=== PATIENT | female | born 1950 | race Two or more races ===

== ENCOUNTER 2024-08-08 03:43 | Emergency (ER) | payer OTHER ==
[~2024-08-08] VITALS: Ht 167.6 cm; Wt 63.5 kg
[2024-08-08] MEDS ORDERED: PANTOPRAZOLE SO20 MG PO (04:00)
[2024-08-08] MEDS ORDERED: COZAAR25 MG PO (04:00)
[2024-08-08] MEDS ORDERED: SYNTHROID100 MCG PO (04:00)
[2024-08-08] MEDS ORDERED: ALBUTEROL SULFATE 3 ML/2.5 MG AMPUL.NEB IH SCH (05:00)
[2024-08-08] MEDS ORDERED: METHYLPREDNISOLONE SOD SUCC 125 MG VIAL IM STA (05:01)
[2024-08-08] MEDS ORDERED: GUAIFENESIN 200 MG/10 ML BLIST.PACK PO STA (05:02)
[2024-08-08] MEDS ORDERED: METHYLPREDNISOLONE SOD SUCC 125 MG VIAL ONE (05:08)
[2024-08-08] MEDS ORDERED: GUAIFENESIN 200 MG/10 ML BLIST.PACK PO ONE (05:09)
[2024-08-08] MEDS ORDERED: ALBUTEROL SULFATE 3 ML/2.5 MG AMPUL.NEB IH ONE (05:37)
[2024-08-08 05:56] LABS: ABG PH 7.437 (7.35-7.45); ABG pCO2 39.9 mmHg (35-45); BICARBONATE 26.3 mmol/l (23-25); SaO2 97.6 %; Tco2 27.5 mmol/l
[2024-08-08 06:18] LABS: allen test SATISFACTORY; mode ROOM AIR; o2 21 %; puncture site RADIAL RIGHT
[2024-08-08 06:19] LABS: HEMATOCRIT 35.2 % (36.0-45.00); HEMOGLOBIN 11.8 g/dL (12.0-15.00); MEAN CORPUSCULAR HEMOGLOBIN 29.3 pg (27.00-32.0); MEAN CORPUSCULAR HGB CONC 33.7 g/dl (32.0-36.0); PLATELET COUNT 295 K/uL (150-450); RED BLOOD COUNT 4.04 M/uL (4.00-6.00); RED CELL DISTRIBUTION WIDTH 14.3 % (11.5-14.5)
[2024-08-08] MEDS ORDERED: BUDESONIDE0.5 MG/2 M IH (08:06)
[2024-08-08] MEDS ORDERED: SINGULAIR10 MG PO (08:06)
[2024-08-08] MEDS ORDERED: ALBUTEROL2.5 MG/3 M IH (08:06)
[2024-08-09] MEDS ORDERED: COZAAR25 MG PO (03:39)
== END 2024-08-08 08:15 ==
LOC: ER 03:43
PROVIDERS: General Practice
DX: R06.2 Wheezing (principal); R05.9 Cough, unspecified; R06.02 Shortness of breath; I10 Essential (primary) hypertension

== ENCOUNTER 2024-08-09 01:17 | Emergency (ER) | payer OTHER ==
[~2024-08-09] VITALS: Ht 160 cm; Wt 63.5 kg
[~2024-08-09 01:17] MED LIST: ALBUTEROL2.5 MG/3 M IH; BUDESONIDE0.5 MG/2 M IH; COZAAR25 MG PO; PANTOPRAZOLE SO20 MG PO; SINGULAIR10 MG PO; SYNTHROID100 MCG PO
[2024-08-09] MEDS ORDERED: CETIRIZINE HCL 5 MG/5 ML ML PO ONE (02:00)
[2024-08-09] MEDS ORDERED: CETIRIZINE HCL 5MG/5ML BLIST.PACK PO ONE (02:15)
[2024-08-09 02:52] LABS: HEMATOCRIT 33.2 % (36.0-45.00); MEAN CELL VOLUME 86.7 fL (80.00-100.00); MEAN CORPUSCULAR HGB CONC 33.5 g/dl (32.0-36.0); PLATELET COUNT 314 K/uL (150-450); RED BLOOD COUNT 3.83 M/uL (4.00-6.00); RED CELL DISTRIBUTION WIDTH 14.4 % (11.5-14.5)
[2024-08-09 02:54] LABS: HEMOGLOBIN 11.1 g/dL (12.0-15.00); MEAN CORPUSCULAR HEMOGLOBIN 28.9 pg (27.00-32.0)
[2024-08-09 03:06] LABS: COVID-19 AG NEGATIVE (NEGATIVE)
[2024-08-09 03:07] LABS: INFLUENZA A AG NEGATIVE (NEGATIVE)
[2024-08-09 03:08] LABS: CALCIUM 8.7 mg/dL (8.5-10.1); GFR 84.35; POTASSIUM 4.3 mEq/L (3.5-5.1)
[2024-08-09 03:09] LABS: CREATININE SERUM 0.68 mg/dL (0.55-1.02)
[2024-08-09] MEDS ORDERED: COZAAR25 MG PO (03:39)
== END 2024-08-09 05:05 ==
LOC: ER 01:17
PROVIDERS: Emergency Medicine; Surgery
DX: I10 Essential (primary) hypertension (principal); R51.9 Headache, unspecified; E03.8 Other specified hypothyroidism; Z20.822 Contact with and (suspected) exposure to COVID-19

== ENCOUNTER 2024-08-14 01:48 | Emergency (ER) | payer OTHER ==
[~2024-08-14] VITALS: Ht 165.1 cm; Wt 63.5 kg
[2024-08-14] MEDS ORDERED: cloNIDine HCL 0.2 MG TABLET PO STA (03:04)
[2024-08-14] MEDS ORDERED: CLONIDINE HCL 0.1 MG TABLET PO ONE (03:09)
[2024-08-14 04:00] LABS: BASO % 0.9 % (0.1-1.2); EOS # 0.89 (0.04-0.54); EOS % 10.9 % (0.7-7.0); HEMATOCRIT 34.6 % (34.1-44.9); HEMOGLOBIN 11.8 g/dL (11.2-15.7); LYMPH # 2.11 (1.18-3.74); LYMPH % 25.8 % (19.3-53.1); MEAN CORPUSCULAR HEMOGLOBIN 29.2 pg (25.6-32.2); MONO # 0.59 (0.24-0.82); MONO % 7.2 % (4.7-12.5); NEUT # 4.45 (1.56-6.13); NEUT % 54.5 % (34.0-71.1); PLATELET COUNT 312 K/uL (163-369); RED BLOOD COUNT 4.04 M/uL (3.93-5.22); RED CELL DISTRIBUTION WIDTH 14.1 % (11.6-14.4)
[2024-08-14 04:49] LABS: ALBUMIN 3.5 gm/dL (3.4-5.0); BILIRUBIN TOTAL 0.27 mg/dL (0.3-1.2); CALCIUM 8.7 mg/dL (8.5-10.1); CREATININE SERUM 0.8 mg/dL (0.55-1.02); GFR 69.92; GLOBULINA 3.2 G/DL (2.4-3.5); POTASSIUM 3.91 mEq/L (3.5-5.1); TOTAL PROTEIN 6.7 gm/dL (6.4-8.2)
== END 2024-08-14 05:45 | disposition home or self-care (01) ==
LOC: ER 01:48
DX: I10 Essential (primary) hypertension (principal); E11.9 Type 2 diabetes mellitus without complications